=== PATIENT | male | born 1965 | race Caucasian/White ===

== ENCOUNTER 2017-04-15 18:37 | Emergency (ER) | payer MEDICARE, OTHER ==
[2017-04-15] MEDS ORDERED: Sodium Chloride 0.9% 10 ML Syringe FLUSH STA (19:41)
[2017-04-15] MEDS ORDERED: Ondansetron 4 MG/2 ML SDV IVPUSH ONE ×2 (19:43→22:09)
[2017-04-15] MEDS ORDERED: HYDROmorphone 1 MG/ML Syringe IVPUSH ONE ×2 (19:43→20:30)
[2017-04-15 21:53] VITALS: BP 121/91
--- NOTE | 2017-04-15 23:43 | EDM.PDOC ---
ED HPI GENERAL MEDICAL PROBLEM - General Chief Complaint: Back Pain or Injury Stated Complaint: BACK PAIN Time Seen by Provider: 04/15/17 19:06 Source of Information: Reports: Patient History Limitations: Reports: No Limitations - History of Present Illness INITIAL COMMENTS - FREE TEXT/NARRATIVE: History of present illness: [This 51-year-old male presents with severe low back pain. He is chronically disabled as a result of back pain and degenerative joint disease. He is scheduled to see an orthopedic surgeon tomorrow in [place]. He is presenting here in so much pain that he is afraid not to be able to get into the vehicle to make his appointment. it's been several years since he's had any imaging done. The pain has become much worse over the last 3 days. He states that he can't even lay down in bed anymore he is in so much pain. He has some pain radiating to the right groin he has no loss of bowel or bladder function. He's barely able to walk due to pain and not weakness.] Review of systems: As per history of present illness and below otherwise all systems reviewed and negative. Past medical history: As per history of present illness and as reviewed below otherwise noncontributory. Surgical history: As per history of present illness and as reviewed below otherwise noncontributory. Social history: No reported history of drug or alcohol abuse. Family history: As per history of present illness and as reviewed below otherwise noncontributory. Physical exam: HEENT: Atraumatic, normocephalic, pupils reactive, negative for conjunctival pallor or scleral icterus, mucous membranes moist, throat clear, neck supple, nontender, trachea midline. Lungs: Clear to auscultation, breath sounds equal bilaterally, chest nontender. Heart: S1S2, regular, negative for clicks, rubs, or JVD. Abdomen: Soft, nondistended, nontender. Negative for masses or hepatosplenomegaly. Negative for costovertebral tenderness. Pelvis: Stable nontender. Back: He has diffuse tenderness to palpation of the high lumbar area of his spine and lower thoracic area. It is especially acute midline. Genitourinary: Deferred. Rectal: Deferred. Extremities: Atraumatic, negative for cords or calf pain. Neurovascular unremarkable. Neuro: Awake, alert, oriented. Cranial nerves II through XII unremarkable. Cerebellum unremarkable. Motor and sensory unremarkable throughout. Exam nonfocal. Diagnostics: [We elected to do a CT of his thoracic and lumbar spine as he has an appointment tomorrow and it is become acute over the last 3 days. Results aren' t is showing multilevel degenerative joint disease of the lumbar and thoracic spine. These images should be available tomorrow for his appointment. 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 BACK Pain Score (Numeric/FACES): 10 - Related Data Allergies Allergy/AdvReac Type Severity Reaction Status Date / Time erythromycin base Allergy Abdominal Verified 04/15/17 19:27 [Erythromycin Base] Pain meperidine HCl [From Demerol] Allergy Respiratory Verified 04/15/17 19:27 Distress Penicillins Allergy Cannot Verified 04/15/17 19:27 Remember Home Meds: Home Meds Gluc Rios 2KCl/Chondr/Vit C/Galen [Glucosamine-Chondr Complex] 1 tab PO DAILY PRN 03/04/15 [History] Lisinopril [Prinivil] 40 mg PO BID 03/04/15 [History] Metoprolol Tartrate [Lopressor] 25 mg PO BID #180 tablet 03/10/15 [Rx] Rosuvastatin [Crestor] 20 mg PO BEDTIME 04/25/15 [History] Aspirin [Ecotrin] 81 mg PO DAILY 04/15/17 [History] Cyclobenzaprine [Flexeril] 10 mg PO TID 04/15/17 [History] Doxazosin [Cardura] 2 mg PO DAILY 04/15/17 [History] Furosemide 20 mg PO DAILY 04/15/17 [History] Hydrocodone/Acetaminophen [Hydrocodon-Acetaminophen 5-325] 1 tab PO Q4HR PRN [History] Past Medical History Other Gastrointestinal History: colon polyps Musculoskeletal History: Reports: Back Pain, Chronic 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 ED EXAM,LOWER BACK PAIN/INJURY - Physical Exam Exam: See Below Course - Vital Signs Last Recorded V/S: Last Vital Signs Temp 34.3 C L 04/15/17 21:50 Pulse 61 04/15/17 21:50 Resp 16 04/15/17 21:50 BP 121/91 H 04/15/17 21:50 Pulse Ox 96 04/15/17 21:50 - Orders/Labs/Meds Orders: Active Orders 24 hr Category Date Time Status Lumbar Spine wo Cont [CT] Stat Exams 04/15/17 19:44 Taken Thoracic Spine wo Cont [CT] Stat Exams 04/15/17 20:17 Taken Meds: Medications Discontinued Medications Generic Name Dose Route Start Last Admin Trade Name Freq PRN Reason Stop Dose Admin Diazepam 5 mg 04/15/17 19:58 04/15/17 20:06 Valium IVPUSH 04/15/17 19:59 5 mg ONETIME ONE Administration Diazepam 5 mg 04/15/17 20:18 04/15/17 20:29 Valium IVPUSH 04/15/17 20:19 5 mg ONETIME ONE Administration Hydromorphone HCl 1 mg 04/15/17 19:43 04/15/17 19:49 Dilaudid IVPUSH 04/15/17 19:44 1 mg ONETIME ONE Administration Hydromorphone HCl 1 mg 04/15/17 20:30 04/15/17 20:35 Dilaudid IVPUSH 04/15/17 20:31 1 mg ONETIME ONE Administration Ondansetron HCl 4 mg 04/15/17 19:43 04/15/17 19:49 Zofran IVPUSH 04/15/17 19:44 4 mg ONETIME ONE Administration Ondansetron HCl 4 mg 04/15/17 22:09 04/15/17 22:13 Zofran IVPUSH 04/15/17 22:10 4 mg ONETIME ONE Administration Sodium Chloride 10 ml 04/15/17 19:41 04/15/17 19:45 Saline Flush FLUSH 04/15/17 19:42 10 ml NOW STA Administration Departure - Departure Time of Disposition: 23:42 Disposition: Home, Self-Care 01 Condition: fair Clinical Impression: Degenerative joint disease (DJD) of lumbar spine Qualifiers: Spinal osteoarthritis complication: with radiculopathy Qualified Code(s): M47.26 - Other spondylosis with radiculopathy, lumbar region - Discharge Information Forms: ED Department Discharge - My Orders Last 24 Hours: My Active Orders 04/15/17 19:44 Lumbar Spine wo Cont [CT] Stat 04/15/17 20:17 Thoracic Spine wo Cont [CT] Stat - Assessment/Plan Last 24 Hours: My Active Orders 04/15/17 19:44 Lumbar Spine wo Cont [CT] Stat 04/15/17 20:17 Thoracic Spine wo Cont [CT] Stat
== END 2017-04-16 00:05 | disposition home or self-care (01) ==
LOC: JP.ED 18:37
DX: M47.26 Other spondylosis with radiculopathy, lumbar region (principal); Z88.1 Allergy status to other antibiotic agents; Z88.0 Allergy status to penicillin; Z88.8 Allergy status to other drugs, medicaments and biological substances; Z79.899 Other long term (current) drug therapy; Z79.82 Long term (current) use of aspirin; Z87.891 Personal history of nicotine dependence
CPT/HCPCS: 72128; 72131; 96374; 96375; 96376; 99284; J1170; J2405; J3360; J7050

== ENCOUNTER 2017-04-17 20:12 | Inpatient (IN) | payer MEDICARE, OTHER ==
--- NOTE | 2017-04-17 20:49 | EDM.PDOC ---
ED HPI GENERAL MEDICAL PROBLEM - General Chief Complaint: Abdominal Pain Stated Complaint: ABD PAIN,PASSING BLOOD Time Seen by Provider: 04/17/17 20:49 Source of Information: Reports: Patient History Limitations: Reports: No Limitations - History of Present Illness INITIAL COMMENTS - FREE TEXT/NARRATIVE: Pt arrived with a history of rectal bleeding He started bleeding today. He had loose stools during the nite. He has pain in his lower abdoman. He does not have pain in the rectum. Onset: Sudden Duration: Day(s): Location: Reports: Abdomen Associated Symptoms: Reports: Other (diarrhea and now he is passing blood. 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 Lower abdomen Pain Score (Numeric/FACES): 5 - Related Data Allergies Allergy/AdvReac Type Severity Reaction Status Date / Time erythromycin base Allergy Abdominal Verified 04/15/17 19:27 [Erythromycin Base] Pain meperidine HCl [From Demerol] Allergy Respiratory Verified 04/15/17 19:27 Distress Penicillins Allergy Cannot Verified 04/15/17 19:27 Remember Home Meds: Home Meds Gluc Rios 2KCl/Chondr/Vit C/Galen [Glucosamine-Chondr Complex] 1 tab PO DAILY PRN 03/04/15 [History] Lisinopril [Prinivil] 40 mg PO BID 03/04/15 [History] Metoprolol Tartrate [Lopressor] 25 mg PO BID #180 tablet 03/10/15 [Rx] Rosuvastatin [Crestor] 20 mg PO BEDTIME 04/25/15 [History] Aspirin [Ecotrin] 81 mg PO DAILY 04/15/17 [History] Cyclobenzaprine [Flexeril] 10 mg PO TID 04/15/17 [History] Doxazosin [Cardura] 2 mg PO DAILY 04/15/17 [History] Furosemide 20 mg PO DAILY 04/15/17 [History] Hydrocodone/Acetaminophen [Hydrocodon-Acetaminophen 5-325] 1 tab PO Q4HR PRN [History] Past Medical History Other Gastrointestinal History: colon polyps Musculoskeletal History: Reports: Back Pain, Chronic 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 - Past Surgical History Other GI Surgeries/Procedures: hemorrhoidectomy Social & Family History - Tobacco Use Smoking Status *Q: Former Smoker Years of Tobacco use: 15 Used Tobacco, but Quit: Yes Month Tobacco Last Used: 0 Second Hand Smoke Exposure: No - Caffeine Use Caffeine Use: Reports: Coffee - Alcohol Use Days Per Week of Alcohol Use: 2 Number of Drinks Per Day: 12 Total Drinks Per Week: 24 - Recreational Drug Use Recreational Drug Use: No ED ROS GENERAL - Review of Systems Review Of Systems: See Below Constitutional: Reports: No Symptoms HEENT: Reports: No Symptoms Respiratory: Reports: No Symptoms Cardiovascular: Reports: No Symptoms Endocrine: Reports: No Symptoms GI/Abdominal: Reports: Abdominal Pain, Other (Pt has lower abdomanal pain. ) : Reports: No Symptoms Musculoskeletal: Reports: No Symptoms Skin: Reports: No Symptoms ED EXAM, GI/ABD - Physical Exam Exam: See Below Text/Narrative:: pt has severe pain in the lower abdoman. This is in the suprapupic area. Exam Limited By: No Limitations General Appearance: Alert, Anxious, Moderate Distress Eyes: Bilateral: Normal Appearance, EOMI Ears: Normal TMs Nose: Normal Inspection Throat/Mouth: Normal Inspection Head: Atraumatic Neck: Normal Inspection Respiratory/Chest: No Respiratory Distress Cardiovascular: Regular Rate, Rhythm (Male) Exam: Deferred Rectal (Males) Exam: Deferred Back Exam: Other (pt is having severe lower back pain. He had a cat scan which they do not have the results for. ) Extremities: Normal Inspection Course - Vital Signs Last Recorded V/S: Last Vital Signs Temp 36.7 C 04/17/17 21:52 Pulse 59 L 04/17/17 22:57 Resp 14 04/17/17 21:52 BP 165/104 H 04/17/17 22:57 Pulse Ox 97 04/17/17 22:57 - Orders/Labs/Meds Orders: Active Orders 24 hr Category Date Time Status Abdomen Pelvis w Cont [CT] Stat Exams 04/17/17 21:35 Taken Iopamidol [Isovue-300 (61%)] Med 04/17/17 22:11 Active 150 ml IV . DIRECTED PRN Pantoprazole [ProTONIX IV] Med 04/17/17 23:45 Active 80 mg IVPUSH .BOLUS Sodium Chloride 0.9% [Normal Saline] 1,000 ml Med 04/17/17 23:45 Active IV ASDIRECTED Sodium Chloride 0.9% [Normal Saline] 100 ml Med 04/17/17 22:15 Active IV ASDIRECTED Sodium Chloride 0.9% [Saline Flush] Med 04/17/17 21:53 Active 10 ml FLUSH ASDIRECTED PRN Saline Lock Insert [OM.PC] Routine Oth 04/17/17 21:53 Ordered Medication Orders Sodium Chloride (Normal Saline) 100 mls @ 3.5 mls/sec IV ASDIRECTED ARTURO Last Admin: 04/17/17 22:35 Dose: 3.5 mls/sec Sodium Chloride (Normal Saline) 1,000 mls @ 125 mls/hr IV ASDIRECTED ARTURO Iopamidol (Isovue-300 (61%)) 150 ml IV . DIRECTED PRN PRN Reason: RADIOLOGY EXAM Stop: 04/18/17 22:12 Last Admin: 04/17/17 22:34 Dose: 150 ml Pantoprazole Sodium (Protonix Iv) 80 mg IVPUSH .BOLUS ARTURO Sodium Chloride (Saline Flush) 10 ml FLUSH ASDIRECTED PRN PRN Reason: Keep Vein Open Last Admin: 04/17/17 21:55 Dose: 10 ml Labs: Laboratory Tests 04/17/17 04/17/17 04/17/17 Range/Units 20:48 20:48 20:48 WBC 12.0 H (4.5-11.0) K/uL RBC 5.96 H (4.30-5.90) M/uL Hgb 16.4 H D (12.0-15.0) g/dL Hct 48.8 (40.0-54.0) % MCV 82 (80-98) fL MCH 28 (27-31) pg MCHC 34 (32-36) % Plt Count 205 (150-400) K/uL Neut % (Auto) 68 H (36-66) % Lymph % (Auto) 21 L (24-44) % [place] % (Auto) 9 H (2-6) % Eos % (Auto) 2 (2-4) % Baso % (Auto) 0 (0-1) % Sodium 139 L (140-148) mmol/L Potassium 3.4 L (3.6-5.2) mmol/L Chloride 102 (100-108) mmol/L Carbon Dioxide 28 (21-32) mmol/L Anion Gap 12.4 (5.0-14.0) mmol/L BUN 10 (7-18) mg/dL Creatinine 1.0 (0.8-1.3) mg/dL Est Cr Clr Drug Dosing 84.55 mL/min Estimated GFR (MDRD) > 60 (>60) Glucose 123 H (74-106) mg/dL Calcium 8.7 (8.5-10.1) mg/dL Total Bilirubin 0.5 (0.2-1.0) mg/dL AST 25 (15-37) U/L ALT 47 (12-78) U/L Alkaline Phosphatase 108 (46-116) U/L C-Reactive Protein 0.50 H (0.0-0.3) mg/dL Total Protein 8.0 (6.4-8.2) g/dL Albumin 3.8 (3.4-5.0) g/dL Globulin 4.2 H (2.3-3.5) g/dL Albumin/Globulin Ratio 0.9 L (1.2-2.2) Urine Color Urine Appearance Urine pH (4.5-8.0) Ur Specific [place] (1.008-1.030) Urine Protein (NEGATIVE) mg/dL Urine Glucose (UA) (NEGATIVE) mg/dL Urine Ketones (NEGATIVE) mg/dL Urine Occult Blood (NEGATIVE) Urine Nitrite (NEGAITVE) Urine Bilirubin (NEGATIVE) Urine Urobilinogen (NORMAL) mg/dL Ur Leukocyte Esterase (NEGATIVE) Urine RBC (0-5) Urine WBC (0-5) Ur Epithelial Cells Amorphous Sediment Urine Bacteria Urine Mucus Urine Other 04/17/17 Range/Units 21:15 WBC (4.5-11.0) K/uL RBC (4.30-5.90) M/uL Hgb (12.0-15.0) g/dL Hct (40.0-54.0) % MCV (80-98) fL MCH (27-31) pg MCHC (32-36) % Plt Count (150-400) K/uL Neut % (Auto) (36-66) % Lymph % (Auto) (24-44) % [place] % (Auto) (2-6) % Eos % (Auto) (2-4) % Baso % (Auto) (0-1) % Sodium (140-148) mmol/L Potassium (3.6-5.2) mmol/L Chloride (100-108) mmol/L Carbon Dioxide (21-32) mmol/L Anion Gap (5.0-14.0) mmol/L BUN (7-18) mg/dL Creatinine (0.8-1.3) mg/dL Est Cr Clr Drug Dosing mL/min Estimated GFR (MDRD) (>60) Glucose (74-106) mg/dL Calcium (8.5-10.1) mg/dL Total Bilirubin (0.2-1.0) mg/dL AST (15-37) U/L ALT (12-78) U/L Alkaline Phosphatase (46-116) U/L C-Reactive Protein (0.0-0.3) mg/dL Total Protein (6.4-8.2) g/dL Albumin (3.4-5.0) g/dL Globulin (2.3-3.5) g/dL Albumin/Globulin Ratio (1.2-2.2) Urine Color Yellow Urine Appearance Clear Urine pH 6.0 (4.5-8.0) Ur Specific [place] 1.020 (1.008-1.030) Urine Protein Trace (NEGATIVE) mg/dL Urine Glucose (UA) Normal (NEGATIVE) mg/dL Urine Ketones Negative (NEGATIVE) mg/dL Urine Occult Blood Negative (NEGATIVE) Urine Nitrite Negative (NEGAITVE) Urine Bilirubin Negative (NEGATIVE) Urine Urobilinogen Normal (NORMAL) mg/dL Ur Leukocyte Esterase Negative (NEGATIVE) Urine RBC 0-5 (0-5) Urine WBC 0-5 (0-5) Ur Epithelial Cells Few Amorphous Sediment Few Urine Bacteria Rare Urine Mucus Few Urine Other See note Meds: Medications Generic Name Dose Route Start Last Admin Trade Name Titiq PRN Reason Stop Dose Admin Sodium Chloride 100 mls @ 3.5 mls/sec 04/17/17 22:15 04/17/17 22:35 Normal Saline IV 3.5 mls/sec ASDIRECTED ARTURO Administration Sodium Chloride 1,000 mls @ 125 mls/hr 04/17/17 23:45 Normal Saline IV ASDIRECTED ARTURO Iopamidol 150 ml 04/17/17 22:11 04/17/17 22:34 Isovue-300 (61%) IV 04/18/17 22:12 150 ml . DIRECTED PRN Administration RADIOLOGY EXAM Pantoprazole Sodium 80 mg 04/17/17 23:45 Protonix Iv IVPUSH .BOLUS ARTURO Sodium Chloride 10 ml 04/17/17 21:53 04/17/17 21:55 Saline Flush FLUSH 10 ml ASDIRECTED PRN Administration Keep Vein Open Discontinued Medications Generic Name Dose Route Start Last Admin Trade Name Van PRN Reason Stop Dose Admin Sodium Chloride 10 ml 04/17/17 22:11 04/17/17 22:35 Saline Flush FLUSH 04/17/17 23:00 10 ml ASDIRECTED PRN Administration Keep Vein Open - Re-Assessments/Exams Free Text/Narrative Re-Assessment/Exam: 04/17/17 23:55 cat scan showed probale colitis Pt is having low grade active bleeding. Departure - Departure Time of Disposition: 23:56 Disposition: Admitted As Inpatient 66 Condition: fair Clinical Impression: Colitis, Lumbar back pain, Rectal bleed - Discharge Information Forms: ED Department Discharge Care Plan Goals: admit to [facility] - My Orders Last 24 Hours: My Active Orders 04/17/17 21:35 Abdomen Pelvis w Cont [CT] Stat 04/17/17 21:53 Sodium Chloride 0.9% [Saline Flush] 10 ml FLUSH ASDIRECTED PRN Saline Lock Insert [OM.PC] Routine 04/17/17 22:11 Iopamidol [Isovue-300 (61%)] 150 ml IV . DIRECTED PRN 04/17/17 22:15 Sodium Chloride 0.9% [Normal Saline] 100 ml IV ASDIRECTED - Assessment/Plan Last 24 Hours: My Active Orders 04/17/17 21:35 Abdomen Pelvis w Cont [CT] Stat 04/17/17 21:53 Sodium Chloride 0.9% [Saline Flush] 10 ml FLUSH ASDIRECTED PRN Saline Lock Insert [OM.PC] Routine 04/17/17 22:11 Iopamidol [Isovue-300 (61%)] 150 ml IV . DIRECTED PRN 04/17/17 22:15 Sodium Chloride 0.9% [Normal Saline] 100 ml IV ASDIRECTED
[2017-04-17] MEDS: Sodium Chloride 0.9% 10 ML Syringe FLUSH PRN (21:55)
[2017-04-17] MEDS ORDERED: Iopamidol 612 MG/ML 150 ML Bottle IV PRN (22:11)
[2017-04-17] MEDS ORDERED: Sodium Chloride 0.9% 10 ML Syringe FLUSH PRN (22:11)
[2017-04-17] MEDS ORDERED: Sodium Chloride 0.9% 100 ML IV SCH (22:15)
[2017-04-17] MEDS ORDERED: Pantoprazole 40 MG Vial IVPUSH SCH (23:45)
[2017-04-18] MEDS ORDERED: Ondansetron 4 MG/2 ML SDV IVPUSH ONE (00:09)
[2017-04-18] MEDS ORDERED: HYDROmorphone 1 MG/ML Syringe IVPUSH ONE (00:09)
[2017-04-18] MEDS: Sodium Chloride 0.9% 1,000 ML IV SCH ×2 (00:10→09:48)
[2017-04-18] MEDS: Sodium Chloride 0.9% 10 ML Syringe FLUSH PRN (00:30)
--- NOTE | 2017-04-18 00:54 | PCM.HP ---
H&P History of Present Illness - General Date of Service: 04/17/17 Admit Problem/Dx: Admission Diagnosis/Problem Admission Diagnosis/Problem Colitis Source of Information: Patient, Family () History Limitations: Reports: No Limitations - History of Present Illness Initial Comments - Free Text/Narative: Rectal bleeding with abdominal pain; Pt arrived with a history of rectal bleeding He started bleeding today. He had 8 to 10 bloody loose stools today, he had one in ER which was noted to be bright red with clots. He has pain in his lower abdomen for the past two days. He does not have pain in the rectum. Onset: Sudden CT Abdomen Pelvis; moderate wall thickening of distal transverse colon and splenic flexure. This may be due to infectious colitis or inflammatory bowel disease. Ischemic colitis can also be considered in the appropriate clinical context. the appendix is normal in appearance and size. Consult with Dr. Nazario, Surgeon, He will do colonscopy in am. Bowel Prep to start on admission to Hospital. Onset of Symptoms: Reports: Today Duration of Symptoms: Reports: Day(s): (two), Constant, Getting Worse Location: Reports: Abdomen, Other (rectal bleeding and abdomen pain.) Quality: Reports: Ache, Burning, Sharp Severity: Severe Improves with: Reports: None Worsens with: Reports: Movement Context: Reports: Other Associated Symptoms: Reports: Fever/Chills (for two days), Shortness of Breath ( with activities due to back pain) Lower abdomen Pain Score (Numeric/FACES): 5 - Related Data Allergies/Adverse Reactions: Allergies Allergy/AdvReac Type Severity Reaction Status Date / Time erythromycin base Allergy Abdominal Verified 04/15/17 19:27 [Erythromycin Base] Pain meperidine HCl [From Demerol] Allergy Respiratory Verified 04/15/17 19:27 Distress Penicillins Allergy Cannot Verified 04/15/17 19:27 Remember Home Medications: Home Meds Gluc Rios 2KCl/Chondr/Vit C/[place] [Glucosamine-Chondr Complex] 1 tab PO DAILY PRN 03/04/15 [History] Lisinopril [Prinivil] 40 mg PO BID 03/04/15 [History] Metoprolol Tartrate [Lopressor] 25 mg PO BID #180 tablet 03/10/15 [Rx] Rosuvastatin [Crestor] 20 mg PO BEDTIME 04/25/15 [History] Aspirin [Ecotrin] 81 mg PO DAILY 04/15/17 [History] Cyclobenzaprine [Flexeril] 10 mg PO TID 04/15/17 [History] Doxazosin [Cardura] 2 mg PO DAILY 04/15/17 [History] Furosemide 20 mg PO DAILY 04/15/17 [History] Hydrocodone/Acetaminophen [Hydrocodon-Acetaminophen 5-325] 1 tab PO Q4HR PRN [History] Past Medical History HEENT History: Reports: Hard of Hearing Cardiovascular History: Reports: High Cholesterol, Hypertension Gastrointestinal History: Reports: Chronic Diarrhea, GERD, Other (See Below) Other Gastrointestinal History: colon polyps Musculoskeletal History: Reports: Back Pain, Chronic 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 Neurological History: Reports: Head Trauma, Seizure Psychiatric History: Reports: Anxiety - Infectious Disease History Infectious Disease History: Reports: Chicken Pox - Past Surgical History Other GI Surgeries/Procedures: hemorrhoidectomy Social & Family History - Family History Cardiac: Reports: [facility] Oncologic: Reports: Colon - Tobacco Use Smoking Status *Q: Former Smoker Years of Tobacco use: 15 Used Tobacco, but Quit: Yes Month Tobacco Last Used: 0 Second Hand Smoke Exposure: No - Caffeine Use Caffeine Use: Reports: Coffee - Alcohol Use Days Per Week of Alcohol Use: 2 Number of Drinks Per Day: 12 Total Drinks Per Week: 24 - Recreational Drug Use Recreational Drug Use: No - Living Situation & Occupation Living situation: Reports: (lives with , 5 miles from [place], [place].) H&P Review of Systems - Review of Systems: Review Of Systems: See Below General: Reports: Fever, Chills, Malaise, Decreased Appetite HEENT: Reports: No Symptoms Pulmonary: Reports: Shortness of Breath Cardiovascular: Reports: Blood Pressure Problem (pre-existing HTN) Gastrointestinal: Reports: Abdominal Pain, Bloody Stool, Diarrhea, Decreased Appetite Genitourinary: Reports: No Symptoms Musculoskeletal: Reports: Back Pain (acute and chronic) Skin: Reports: No Symptoms Psychiatric: Reports: No Symptoms Neurological: Reports: No Symptoms Hematologic/Lymphatic: Reports: No Symptoms Immunologic: Reports: No Symptoms Exam - Exam Exam: See Below - Vital Signs Vital Signs: Last Vital Signs Temp 35.9 C 04/18/17 00:31 Pulse 69 04/18/17 00:31 Resp 14 04/18/17 00:31 BP 175/107 H 04/18/17 00:31 Pulse Ox 94 L 04/18/17 00:31 Weight: 134.4 kg - Exam General: Alert, Oriented, Cooperative, Mild Distress HEENT: PERRLA, Conjunctiva Clear, EACs Clear, EOMI, Hearing Intact, Mucosa Moist & [place], Nares Patent, Normal Nasal Septum, Posterior Pharynx Clear, Pupils Equal, Pupils Reactive, TMs Clear, Other (large pitted tonsils. ) Neck: Supple, Trachea Midline, 2 Lungs: Clear to Auscultation, Normal Respiratory Effort Cardiovascular: Regular Rate, Regular Rhythm, Normal S1, Normal S2 Abdomen: Soft, Distention (large, obese), Tenderness (generalized), Hypoactive Bowel Sounds (Male) Exam: Deferred Rectal (Males) Exam: Deferred Back Exam: Normal Inspection, Full Range of Motion Extremities: Normal Inspection Skin: Warm, Dry, Intact Neurological: Cranial Nerves Intact, Reflexes Equal Bilateral Neuro Extensive - Mental Status: Alert, Oriented x3, Normal Mood/Affect, Normal Cognition Neuro Extensive - Motor, Sensory, Reflexes: CN II-XII Intact, Normal Gait, Normal Reflexes Psychiatric: Alert, Anxious (related to hospital admission and pending surgery) - Patient Data Lab Results last 24 hrs: Laboratory Results - last 24 hr 04/17/17 04/17/17 04/17/17 Range/Units 20:48 20:48 20:48 WBC 12.0 H (4.5-11.0) K/uL RBC 5.96 H (4.30-5.90) M/uL Hgb 16.4 H D (12.0-15.0) g/dL Hct 48.8 (40.0-54.0) % MCV 82 (80-98) fL MCH 28 (27-31) pg MCHC 34 (32-36) % Plt Count 205 (150-400) K/uL Neut % (Auto) 68 H (36-66) % Lymph % (Auto) 21 L (24-44) % [place] % (Auto) 9 H (2-6) % Eos % (Auto) 2 (2-4) % Baso % (Auto) 0 (0-1) % Sodium 139 L (140-148) mmol/L Potassium 3.4 L (3.6-5.2) mmol/L Chloride 102 (100-108) mmol/L Carbon Dioxide 28 (21-32) mmol/L Anion Gap 12.4 (5.0-14.0) mmol/L BUN 10 (7-18) mg/dL Creatinine 1.0 (0.8-1.3) mg/dL Est Cr Clr Drug Dosing 84.55 mL/min Estimated GFR (MDRD) > 60 (>60) Glucose 123 H (74-106) mg/dL Calcium 8.7 (8.5-10.1) mg/dL Total Bilirubin 0.5 (0.2-1.0) mg/dL AST 25 (15-37) U/L ALT 47 (12-78) U/L Alkaline Phosphatase 108 (46-116) U/L C-Reactive Protein 0.50 H (0.0-0.3) mg/dL Total Protein 8.0 (6.4-8.2) g/dL Albumin 3.8 (3.4-5.0) g/dL Globulin 4.2 H (2.3-3.5) g/dL Albumin/Globulin Ratio 0.9 L (1.2-2.2) Urine Color Urine Appearance Urine pH (4.5-8.0) Ur Specific [place] (1.008-1.030) Urine Protein (NEGATIVE) mg/dL Urine Glucose (UA) (NEGATIVE) mg/dL Urine Ketones (NEGATIVE) mg/dL Urine Occult Blood (NEGATIVE) Urine Nitrite (NEGAITVE) Urine Bilirubin (NEGATIVE) Urine Urobilinogen (NORMAL) mg/dL Ur Leukocyte Esterase (NEGATIVE) Urine RBC (0-5) Urine WBC (0-5) Ur Epithelial Cells Amorphous Sediment Urine Bacteria Urine Mucus Urine Other 04/17/17 Range/Units 21:15 WBC (4.5-11.0) K/uL RBC (4.30-5.90) M/uL Hgb (12.0-15.0) g/dL Hct (40.0-54.0) % MCV (80-98) fL MCH (27-31) pg MCHC (32-36) % Plt Count (150-400) K/uL Neut % (Auto) (36-66) % Lymph % (Auto) (24-44) % [place] % (Auto) (2-6) % Eos % (Auto) (2-4) % Baso % (Auto) (0-1) % Sodium (140-148) mmol/L Potassium (3.6-5.2) mmol/L Chloride (100-108) mmol/L Carbon Dioxide (21-32) mmol/L Anion Gap (5.0-14.0) mmol/L BUN (7-18) mg/dL Creatinine (0.8-1.3) mg/dL Est Cr Clr Drug Dosing mL/min Estimated GFR (MDRD) (>60) Glucose (74-106) mg/dL Calcium (8.5-10.1) mg/dL Total Bilirubin (0.2-1.0) mg/dL AST (15-37) U/L ALT (12-78) U/L Alkaline Phosphatase (46-116) U/L C-Reactive Protein (0.0-0.3) mg/dL Total Protein (6.4-8.2) g/dL Albumin (3.4-5.0) g/dL Globulin (2.3-3.5) g/dL Albumin/Globulin Ratio (1.2-2.2) Urine Color Yellow Urine Appearance Clear Urine pH 6.0 (4.5-8.0) Ur Specific [place] 1.020 (1.008-1.030) Urine Protein Trace (NEGATIVE) mg/dL Urine Glucose (UA) Normal (NEGATIVE) mg/dL Urine Ketones Negative (NEGATIVE) mg/dL Urine Occult Blood Negative (NEGATIVE) Urine Nitrite Negative (NEGAITVE) Urine Bilirubin Negative (NEGATIVE) Urine Urobilinogen Normal (NORMAL) mg/dL Ur Leukocyte Esterase Negative (NEGATIVE) Urine RBC 0-5 (0-5) Urine WBC 0-5 (0-5) Ur Epithelial Cells Few Amorphous Sediment Few Urine Bacteria Rare Urine Mucus Few Urine Other See note Result Diagrams: 04/17/17 20:48 04/17/17 20:48 *Q Meaningful Use (ADM) - VTE *Q VTE Criteria *Q: - Stroke *Q Stroke Criteria *Q: - AMI *Q AMI Criteria *Q: - Problem List (1) Colitis SNOMED Code(s): 73076524 ICD Code: K52.9 - NONINFECTIVE GASTROENTERITIS AND COLITIS, UNSPECIFIED Status: Acute Priority: High Current Visit: Yes (2) Rectal bleed SNOMED Code(s): 99652477 ICD Code: K62.5 - HEMORRHAGE OF ANUS AND RECTUM Status: Acute Priority: High Current Visit: Yes (3) Degenerative joint disease (DJD) of lumbar spine Status: Acute Priority: Medium Current Visit: Yes Qualifiers: Spinal osteoarthritis complication: with radiculopathy Qualified Code(s): M47.26 - Other spondylosis with radiculopathy, lumbar region (4) Hypertension SNOMED Code(s): 33978547 ICD Code: I10 - ESSENTIAL (PRIMARY) HYPERTENSION Status: Acute Priority: High Current Visit: Yes Qualifiers: Hypertension type: essential hypertension Qualified Code(s): I10 - Essential (primary) hypertension Problem List Initiated/Reviewed/Updated: Yes Orders Last 24hrs: Active Orders 24 hr Category Date Time Status Patient Status Manage Transfer [TRANSFER] Routine ADT 04/18/17 00:23 Active Abdomen Pelvis w Cont [CT] Stat Exams 04/17/17 21:35 Taken Iopamidol [Isovue-300 (61%)] Med 04/17/17 22:11 Active 150 ml IV . DIRECTED PRN Pantoprazole [ProTONIX IV] Med 04/17/17 23:45 Active 80 mg IVPUSH .BOLUS Sodium Chloride 0.9% [Normal Saline] 1,000 ml Med 04/17/17 23:45 Active IV ASDIRECTED Sodium Chloride 0.9% [Normal Saline] 100 ml Med 04/17/17 22:15 Active IV ASDIRECTED Sodium Chloride 0.9% [Saline Flush] Med 04/17/17 21:53 Active 10 ml FLUSH ASDIRECTED PRN Saline Lock Insert [OM.PC] Routine Oth 04/17/17 21:53 Ordered Resuscitation Status Routine Resus Stat 04/18/17 00:24 Ordered Medication Orders Sodium Chloride (Normal Saline) 100 mls @ 3.5 mls/sec IV ASDIRECTED ARTURO Last Admin: 04/17/17 22:35 Dose: 3.5 mls/sec Sodium Chloride (Normal Saline) 1,000 mls @ 125 mls/hr IV ASDIRECTED ARTURO Last Admin: 04/18/17 00:10 Dose: 125 mls/hr Iopamidol (Isovue-300 (61%)) 150 ml IV . DIRECTED PRN PRN Reason: RADIOLOGY EXAM Stop: 04/18/17 22:12 Last Admin: 04/17/17 22:34 Dose: 150 ml Pantoprazole Sodium (Protonix Iv) 80 mg IVPUSH .BOLUS ARTURO Last Admin: 04/18/17 00:13 Dose: 80 mg Sodium Chloride (Saline Flush) 10 ml FLUSH ASDIRECTED PRN PRN Reason: Keep Vein Open Last Admin: 04/18/17 00:30 Dose: 10 ml Admin: 04/17/17 21:55 Dose: 10 ml Assessment/Plan Comment:: Assessment/Plan Comment:: Rectal bleeding with abdominal pain; Pt arrived with a history of rectal bleeding He started bleeding today. He had 8 to 10 bloody loose stools today, he had one in ER which was noted to be bright red with clots. He has pain in his lower abdomen for the past two days. He does not have pain in the rectum. Onset: Sudden CT Abdomen Pelvis; moderate wall thickening of distal transverse colon and splenic flexure. This may be due to infectious colitis or inflammatory bowel disease. Ischemic colitis can also be considered in the appropriate clinical context. the appendix is normal in appearance and size. Consult with Dr. Nazario, Surgeon, He will do colonscopy in am. Bowel Prep to start on admission to Hospital. Colitits, abdominal pain and rectal bleeding -N.p.o. status -IV fluids, Normal Saline at 125ml per hour -start colon prep tonight -IV flagyl 500mg every 8 hours -IV Cipro 400mg every 12 hours -IV Protonix 80mg in ER, then IV 40mg every 12 hours -IV Dilaudid [employer] -IV Zofran 4mg every 8 hours prn nausea -Anticipate surgical intervention in the morning with Dr. Nazario Back pain -Dilaudid [employer] HTN, heart disease -continue home medication; Lisinopril 40mg bid, Crestor 20mg at hs, Lasix 20mg daily, Cardura 2mg daily, Lopressor 25mg po bid -given pm dose on admission to hospital Maintenance issues - - DVT prophylaxis - SCD, hold anti-coag due to active lower GI bleed. - GI prophylaxis - PPI - Nutrition - n.p.o. - Sosa catheter - not indicated at this time CODE STATUS - FULL Admission justification - This patient will be admitted for inpatient services and is medically appropriate meeting medical necessity for inpatient admission as outlined in my documentation. I reasonably expect the patient will require inpatient services that span a period time over 2 midnights. I reasonably expect this patient to be discharged or transferred within 96 hours after admission to the Critical [facility]. Disposition - anticipate discharge to home Primary care physician - Carola Sampson nurse practitioner
[2017-04-18] MEDS ORDERED: LORazepam 2 MG/ML MDV IV PRN (01:35)
[2017-04-18] MEDS ORDERED: metroNIDAZOLE/Normal Saline 500 MG in Premix Bag 1 BAG IV SCH (01:35)
[2017-04-18] MEDS ORDERED: Ondansetron 4 MG/2 ML SDV IVPUSH PRN (01:35)
[2017-04-18] MEDS ORDERED: Bisacodyl 5 MG Tab PO ONE ×2 (01:35→08:30)
[2017-04-18] MEDS ORDERED: Albuterol 0.083% 2.5 MG/3 ML Neb Soln NEB PRN (01:35)
[2017-04-18] MEDS ORDERED: Naloxone 0.4 MG/ML SDV IVPUSH PRN (01:35)
[2017-04-18] MEDS ORDERED: Ciprofloxacin in D5W 400 MG in Premix Bag 1 BAG IV SCH ×4 (01:35→16:00)
[2017-04-18] MEDS ORDERED: HYDROmorphone/Normal Saline 15 MG/30 ML PCA IV PRN (01:35)
[2017-04-18] MEDS ORDERED: Ondansetron 4 MG/2 ML SDV IV PRN (01:35)
[2017-04-18] MEDS ORDERED: Polyethylene Glycol 3350 Powder 238 GM Bot PO ONE (01:35)
[2017-04-18] MEDS: Metoprolol Tartrate 25 MG Tab PO SCH ×3 (01:54→20:41)
[2017-04-18] MEDS ORDERED: Lisinopril 10 MG Tab ONE (02:15)
[2017-04-18] MEDS: Lisinopril 20 MG Tab PO SCH ×3 (02:19→20:41)
[2017-04-18] MEDS ORDERED: Pantoprazole 40 MG Vial IV SCH (09:10)
[2017-04-18] MEDS: Pantoprazole 40 MG Vial IV SCH ×2 (09:21→20:43)
[2017-04-18] MEDS: Doxazosin 4 MG Tab PO SCH (09:22)
[2017-04-18] MEDS: Furosemide 20 MG Tab PO SCH (09:24)
[2017-04-18] MEDS: metroNIDAZOLE/Normal Saline 500 MG in Premix Bag 1 BAG IV SCH ×2 (09:26→17:14)
[2017-04-18] MEDS: Potassium Chloride 20 MEQ, Lidocaine 1% 2 ML in Sodium Chloride 0.9% 100 ML IV SCH ×2 (09:46→11:39)
--- NOTE | 2017-04-18 10:26 | PCM.PN ---
- General Info Date of Service: 04/18/17 Functional Status: Reports: pain controlled, urinating - Review of Systems General: Denies: Fever, Weakness, Chills Pulmonary: Reports: no symptoms Cardiovascular: Reports: No Symptoms Gastrointestinal: Reports: Abdominal pain. Denies: Diarrhea, Difficulty swallowing, Hematochezia, Melena, Nausea, Vomiting Musculoskeletal: Reports: back pain Systems Review Comment:: This patient is a 51-year-old gentleman who was admitted through the emergency department last night, with left-sided abdominal pain and hematochezia. Symptoms started approximately 24 hours prior to admission with intermittent cramping pain especially in the left lower, current. Through the day yesterday had frequent bloody stools. On this evaluation in the emergency department CT scan showed evidence of colitis in the left colon. Hemoglobin was good and greater than 16, has remained stable since admission with no further bloody stools. Vital signs have been stable and he has remained afebrile. - Patient Data Vitals - most recent: Last Vital Signs Temp 97.3 F 04/18/17 07:05 Pulse 68 04/18/17 09:24 Resp 16 04/18/17 07:05 BP 149/104 H 04/18/17 09:46 Pulse Ox 95 04/18/17 07:05 Weight - most recent: 303 lb I&O - last 24 hours: Intake & Output 04/17/17 04/18/17 04/18/17 22:59 06:59 14:59 Intake Total 2514 Balance 2514 Lab Results last 24 hrs: Laboratory Results - last 24 hr 04/18/17 04/18/17 Range/Units 04:00 04:00 WBC 12.1 H (4.5-11.0) K/uL RBC 5.76 (4.30-5.90) M/uL Hgb 16.2 H (12.0-15.0) g/dL Hct 47.3 (40.0-54.0) % MCV 82 (80-98) fL MCH 28 (27-31) pg MCHC 34 (32-36) % Plt Count 197 (150-400) K/uL Neut % (Auto) 66 (36-66) % Lymph % (Auto) 24 (24-44) % [place] % (Auto) 9 H (2-6) % Eos % (Auto) 1 L (2-4) % Baso % (Auto) 0 (0-1) % Sodium 141 (140-148) mmol/L Potassium 3.1 L (3.6-5.2) mmol/L Chloride 103 (100-108) mmol/L Carbon Dioxide 25 (21-32) mmol/L Anion Gap 16.1 H (5.0-14.0) mmol/L BUN 9 (7-18) mg/dL Creatinine 1.0 (0.8-1.3) mg/dL Est Cr Clr Drug Dosing 84.55 mL/min Estimated GFR (MDRD) > 60 (>60) Glucose 137 H (74-106) mg/dL Calcium 8.3 L (8.5-10.1) mg/dL Med Orders - Current: Current Medications Albuterol (Proventil Neb Soln) 2.5 mg NEB Q4H PRN PRN Reason: Shortness Of Breath/wheezing Doxazosin Mesylate (Cardura) 2 mg PO DAILY [facility] Last Admin: 04/18/17 09:22 Dose: 2 mg Furosemide (Lasix) 20 mg PO DAILY [facility] Last Admin: 04/18/17 09:24 Dose: 20 mg Hydromorphone HCl (Dilaudid [employer] 15 Mg In Ns 30 Ml) 0 mg IV ASDIRECTED PRN; Protocol PRN Reason: Pain Last Admin: 04/18/17 02:20 Dose: 15 mg Sodium Chloride (Normal Saline) 1,000 mls @ 125 mls/hr IV ASDIRECTED [facility] Last Admin: 04/18/17 09:48 Dose: 125 mls/hr Ciprofloxacin/Dextrose 400 mg/ (Premix) 200 mls @ 200 mls/hr IV Q12H [facility] Metronidazole 500 mg/ Premix 100 mls @ 100 mls/hr IV Q8H [facility] Last Admin: 04/18/17 09:26 Dose: 100 mls/hr Potassium Chloride 20 meq/Lidocaine HCl 2 ml/ Sodium Chloride 112 mls @ 56 mls/ hr IV Q2H [facility] Stop: 04/18/17 13:59 Last Admin: 04/18/17 09:46 Dose: 56 mls/hr Lisinopril (Prinivil) 40 mg PO BID [facility] Last Admin: 04/18/17 09:46 Dose: 40 mg Lorazepam (Ativan) 1 mg IV Q6H PRN PRN Reason: Nausea/Vomiting Metoprolol Tartrate (Lopressor) 25 mg PO BID [facility] Last Admin: 04/18/17 09:24 Dose: 25 mg Naloxone HCl (Narcan) 0.4 mg IVPUSH Q2M PRN PRN Reason: Respiratory Distress Ondansetron HCl (Zofran) 4 mg IV Q4H PRN PRN Reason: Nausea/Vomiting Ondansetron HCl (Zofran) 4 mg IVPUSH Q4H PRN PRN Reason: Nausea/Vomiting Pantoprazole Sodium (Protonix Iv) 40 mg IV Q12H [facility] Last Admin: 04/18/17 09:21 Dose: 40 mg Potassium Chloride (Klor-Con M20) 40 meq PO ONETIME ONE Stop: 04/18/17 10:31 Rosuvastatin Calcium (Crestor) 20 mg PO BEDTIME [facility] Discontinued Medications Bisacodyl (Dulcolax) 5 mg PO ONETIME ONE Stop: 04/18/17 01:36 Last Admin: 04/18/17 01:54 Dose: 5 mg Bisacodyl (Dulcolax) 10 mg PO ONETIME ONE Stop: 04/18/17 08:31 Last Admin: 04/18/17 07:54 Dose: 10 mg Hydromorphone HCl (Dilaudid) 1 mg IVPUSH ONETIME ONE Stop: 04/18/17 00:10 Last Admin: 04/18/17 00:24 Dose: 1 mg Sodium Chloride (Normal Saline) 100 mls @ 3.5 mls/sec IV ASDIRECTED [facility] Last Admin: 04/17/17 22:35 Dose: 3.5 mls/sec Ciprofloxacin/Dextrose 400 mg/ (Premix) 200 mls @ 200 mls/hr IV Q12H [facility] Last Admin: 04/18/17 02:03 Dose: 200 mls/hr Metronidazole 500 mg/ Premix 100 mls @ 100 mls/hr IV Q8H [facility] Last Admin: 04/18/17 03:13 Dose: 100 mls/hr Ciprofloxacin/Dextrose 400 mg/ (Premix) 200 mls @ 200 mls/hr IV Q12H [facility] Iopamidol (Isovue-300 (61%)) 150 ml IV . DIRECTED PRN PRN Reason: RADIOLOGY EXAM Stop: 04/18/17 22:12 Last Admin: 04/17/17 22:34 Dose: 150 ml Lisinopril (Prinivil) Confirm Administered Dose 40 mg .ROUTE .STK-MED ONE Stop: 04/18/17 02:16 Last Admin: 04/18/17 02:18 Dose: Not Given Ondansetron HCl (Zofran) 4 mg IVPUSH ONETIME ONE Stop: 04/18/17 00:10 Last Admin: 04/18/17 00:21 Dose: 4 mg Pantoprazole Sodium (Protonix Iv) 80 mg IVPUSH .BOLUS ARTURO Last Admin: 04/18/17 00:13 Dose: 80 mg Pantoprazole Sodium (Protonix Iv) 40 mg IV Q12H [facility] Polyethylene Glycol (Miralax) 238 gm PO ONETIME ONE Stop: 04/18/17 01:36 Last Admin: 04/18/17 01:54 Dose: 238 gm Sodium Chloride (Saline Flush) 10 ml FLUSH ASDIRECTED PRN PRN Reason: Keep Vein Open Last Admin: 04/18/17 00:30 Dose: 10 ml Sodium Chloride (Saline Flush) 10 ml FLUSH ASDIRECTED PRN PRN Reason: Keep Vein Open Stop: 04/17/17 23:00 Last Admin: 04/17/17 22:35 Dose: 10 ml - Exam Quality Assessment: DVT prophylaxis General: alert, oriented, cooperative, mild distress Lungs: Clear to auscultation, Normal respiratory effort Cardiovascular: Regular Rate, Regular Rhythm, No Murmurs Abdomen: bowel sounds present, soft, no distension, tenderness. No: rigidity, rebound, guarding Extremities: no edema Skin: warm, dry, intact - Problem List Review Problem List Initiated/Reviewed/Updated: Yes - My Orders Last 24 Hours: My Active Orders 04/18/17 10:00 Potassium Chloride 20 meq Lidocaine 1% [Xylocaine 1%] 2 ml Sodium Chloride 0.9 % [Normal Saline] 100 ml IV Q2H 04/18/17 10:30 Potassium Chloride [Klor-Con M20] 40 meq PO ONETIME ONE 04/19/17 05:00 BASIC METABOLIC PANEL,BMP [CHEM] Timed CBC WITH AUTO DIFF [HEME] Timed - Plan Plan:: ASSESSMENT AND PLAN ISCHEMIC COLITIS-likely cause of abdominal pain and hematochezia -N.p.o. status -IV fluids, Normal Saline at 125ml per hour -colonoscopy today with Dr. Nazario -IV flagyl 500mg every 8 hours -IV Cipro 400mg every 12 hours -IV Protonix 80mg in ER, then IV 40mg every 12 hours -IV Dilaudid [employer] -IV Zofran 4mg every 8 hours prn nausea CHRONIC LOW BACK PAIN -Dilaudid [employer] HTN, heart disease -continue home medication; Lisinopril 40mg bid, Crestor 20mg at hs, Lasix 20mg daily, Cardura 2mg daily, Lopressor 25mg po bid MAINTENANCE ISSUES - DVT prophylaxis - SCD, hold anti-coag due to active lower GI bleed. - GI prophylaxis - PPI - Nutrition - n.p.o. - Sosa catheter - not indicated at this time CODE STATUS - FULL Admission justification - This patient will be admitted for inpatient services and is medically appropriate meeting medical necessity for inpatient admission as outlined in my documentation. I reasonably expect the patient will require inpatient services that span a period time over 2 midnights. I reasonably expect this patient to be discharged or transferred within 96 hours [facility] Disposition - anticipate discharge to home Primary care physician - Carola Sampson nurse practitioner
[2017-04-18] MEDS ORDERED: Potassium Chloride 20 MEQ Tab.ER PO ONE (10:30)
[2017-04-18] MEDS: Ciprofloxacin in D5W 400 MG in Premix Bag 1 BAG IV SCH ×2 (14:07)
[2017-04-18] MEDS ORDERED: fentaNYL 100 MCG/2 ML SDV ONE (14:55)
[2017-04-18] MEDS ORDERED: Propofol 200 MG/20 ML SDV ONE (14:55)
[2017-04-18] MEDS ORDERED: Midazolam 1 MG/ML 2 ML SDV ONE (14:55)
[2017-04-18] MEDS ORDERED: Ibuprofen 600 MG Tab PO PRN (20:18)
[2017-04-18] MEDS ORDERED: Sodium Chloride 0.9% 1,000 ML IV SCH (20:30)
[2017-04-18] MEDS ORDERED: Rosuvastatin 10 MG Tab PO SCH (21:00)
[2017-04-18] MEDS ORDERED: Acetaminophen 325 MG Tab PO PRN (21:06)
[2017-04-19] MEDS: Ciprofloxacin in D5W 400 MG in Premix Bag 1 BAG IV SCH ×4 (01:54→13:21)
[2017-04-19] MEDS: metroNIDAZOLE/Normal Saline 500 MG in Premix Bag 1 BAG IV SCH ×2 (02:50→10:25)
[2017-04-19] MEDS: Furosemide 20 MG Tab PO SCH (08:34)
[2017-04-19] MEDS: Metoprolol Tartrate 25 MG Tab PO SCH (08:34)
[2017-04-19] MEDS: Doxazosin 4 MG Tab PO SCH (08:34)
[2017-04-19] MEDS: Pantoprazole 40 MG Vial IV SCH (08:35)
[2017-04-19] MEDS: Lisinopril 20 MG Tab PO SCH (08:35)
--- NOTE | 2017-04-19 13:55 | OR ---
DATE OF PROCEDURE: 04/18/2017 PREOPERATIVE DIAGNOSIS: Blood in stool; abdominal pain, improved; and abnormal CT scan suggestive of ischemic colitis. POSTOPERATIVE DIAGNOSIS: Colitis at the splenic flexure consistent with ischemic colitis. PROCEDURE: Colonoscopy to the splenic flexure with biopsy of splenic flexure. ANESTHESIA: IV anesthesia with monitored anesthesia care. INDICATIONS: This 51-year-old white male was admitted last night passing blood with his stool and complaining of abdominal pain. CAT scan showed a thickened bowel wall at the colonic splenic flexure area suggestive of ischemic colitis. He received a bowel prep, which he tolerated. His pain is resolved. He has had no more bleeding. I counseled him for a colonoscopy with possible biopsy and/or polypectomy including risks and alternatives, and he gave his informed consent to proceed. His last colonoscopic exam was done about two years ago. DESCRIPTION OF PROCEDURE: The patient was placed in the left lateral decubitus position. IV anesthesia was administered by the Anesthesia Service. Time-out was held. A rectal exam was performed, which was unremarkable. The flexible video Olympus colonoscope was introduced through his anus, up his rectum, and out his colon to the splenic flexure. As we entered the proximal left colon, we saw some erythema consistent with colitis, however, when we reached the splenic flexure, it became quite significant colitis. There were some very dark mucosal areas. We obtained multiple biopsies of this area. We did not proceed beyond this to avoid the risk of perforation. The scope was then withdrawn. No other lesions were noted. The scope was retroflexed in the rectum with the distal rectum appearing unremarkable. The scope was straightened and removed. He tolerated the procedure well. Jose Nazario MD /[id number] MTDD
[2017-04-19 14:33] VITALS: BP 140/97
--- NOTE | 2017-04-19 14:52 | PCM.DCSUM1 ---
Discharge Summary - Hospital Course Brief History: 51-year-old male with history of obesity with a BMI greater than 40 and difficult to control hypertension who presented with left lower quadrant abdominal pain and rectal bleeding. He is admitted for management of colitis and lower GI hemorrhage. - Discharge Data Discharge Date: 04/19/17 Discharge Disposition: Home, Self-Care 01 Condition: Good - Discharge Diagnosis/Problem(s) (1) Ischemic colitis SNOMED Code(s): 54299237 ICD Code: K55.9 - VASCULAR DISORDER OF INTESTINE, UNSPECIFIED Status: Acute (2) WALTER (obstructive sleep apnea) SNOMED Code(s): 95809088 ICD Code: G47.33 - OBSTRUCTIVE SLEEP APNEA (ADULT) (PEDIATRIC) Status: Suspected - Patient Summary/Data Consults: Consultations 04/18/17 01:35 Consult to Physician [CONS] Routine Consulting Provider: Davin Bo Call Completed to Consulting Physician: Yes: colonscopy in am Reason for Consult: rectal bleeding Person Notified: Dr. Nazario Date Notified: 04/18/17 Time Notified: 00:05 Hospital Course: Alberto presented to the emergency room with crampy left lower quadrant abdominal pain and hematochezia with clots. Workup in the emergency room was concerning for an acute lower gastrointestinal hemorrhage and he was admitted to the hospital for further workup and management. The morning after admission his hemoglobin has remained stable. He has not had additional episodes of bleeding. A colonoscopy was performed and showed some evidence for probable ischemic colitis at the splenic flexure. This was relatively mild. After initially having significant elevations of his blood pressure with both systolic and diastolic pressures being elevated his blood pressures have been well-controlled. He has tolerated a regular diet. I suspect that his ischemic colitis was related to difficult to control hypertension. Blood pressure has been very well controlled during the course of the hospital stay. We did discuss some medication adjustments but at this point his blood pressure is so well controlled but I don't believe we need to make changes. I am concerned that he has undiagnosed obstructive sleep apnea with excessive daytime somnolence, snoring and witnessed apneas. I did complete the paperwork for him to have an outpatient stress test. He will continue his usual medications for now. He does have a blood pressure cuff at home and will be monitoring his blood pressures are if he does not feel well. He will need close clinic followup to ensure that his blood pressure remains well-controlled. - Patient Instructions Diet: Regular Diet as Tolerated Activity: As Tolerated Driving: May Drive Today Showering/Bathing: May Shower Notify Provider of: Fever, Increased Pain, Nausea and/or Vomiting Other/Special Instructions: 1. You were in the hospital for management of ischemic colitis. I suspect that the poor blood flow was secondary to elevated blood pressures. Your bleeding has stopped with normalization of blood pressure. I suspect that the difficult to control blood pressure is caused by obstructive sleep apnea. I have completed paperwork for an outpatient sleep study and you will be contacted in the near future to schedule this. 2. Please followup next week to have your blood pressure checked. If your blood pressure remains out of goal range we may need to add an additional medication to help control the blood pressure. Hydrochlorothiazide may be a good choice for additional blood pressure control. 3. Please seek medical attention if you have severe abdominal pain, recurrence of your bleeding or you develop profound fatigue, shortness of breath or chest pain. - Discharge Plan Home Medications: Home Meds Gluc Rios 2KCl/Chondr/Vit C/Galen [Glucosamine-Chondr Complex] 1 tab PO DAILY PRN 03/04/15 [History] Lisinopril [Prinivil] 40 mg PO BID 03/04/15 [History] Rosuvastatin [Crestor] 20 mg PO BEDTIME 04/25/15 [History] Aspirin [Ecotrin] 81 mg PO DAILY 04/15/17 [History] Cyclobenzaprine [Flexeril] 10 mg PO TID 04/15/17 [History] Doxazosin [Cardura] 2 mg PO DAILY 04/15/17 [History] Furosemide 20 mg PO DAILY 04/15/17 [History] Hydrocodone/Acetaminophen [Hydrocodon-Acetaminophen 5-325] 1 tab PO Q4HR PRN [History] Metoprolol Tartrate 100 mg PO BID 04/18/17 [History] Patient Handouts: Sleep Apnea, [id number] Referrals: Carola Sampson NP [Primary Care Provider] - (1 week - f/u hospital stay for ischemic colitis and BP check) - Discharge Summary/Plan Comment DC Time >30 min.: No (25) - Patient Data Vitals - Most Recent: Last Vital Signs Temp 36.6 C 04/19/17 14:31 Pulse 83 04/19/17 14:31 Resp 16 04/19/17 14:31 BP 140/97 H 04/19/17 14:31 Pulse Ox 94 L 04/19/17 14:31 Weight - Most Recent: 134.4 kg I&O - Last 24 hours: Intake & Output 04/18/17 04/19/17 04/19/17 22:59 06:59 14:59 Intake Total 2945 766 960 Balance 2945 766 960 Lab Results - Last 24 hrs: Laboratory Results - last 24 hr 04/19/17 04/19/17 Range/Units 04:45 04:45 WBC 9.5 (4.5-11.0) K/uL RBC 5.29 (4.30-5.90) M/uL Hgb 14.8 (12.0-15.0) g/dL Hct 44.0 (40.0-54.0) % MCV 83 (80-98) fL MCH 28 (27-31) pg MCHC 34 (32-36) % Plt Count 154 (150-400) K/uL Neut % (Auto) 59 (36-66) % Lymph % (Auto) 25 (24-44) % [place]ides % (Auto) 13 H (2-6) % Eos % (Auto) 2 (2-4) % Baso % (Auto) 1 (0-1) % Sodium 141 (140-148) mmol/L Potassium 3.3 L (3.6-5.2) mmol/L Chloride 104 (100-108) mmol/L Carbon Dioxide 27 (21-32) mmol/L Anion Gap 13.3 (5.0-14.0) mmol/L BUN 5 L (7-18) mg/dL Creatinine 0.8 (0.8-1.3) mg/dL Est Cr Clr Drug Dosing 105.69 mL/min Estimated GFR (MDRD) > 60 (>60) Glucose 106 (74-106) mg/dL Calcium 8.0 L (8.5-10.1) mg/dL Med Orders - Current: Current Medications Acetaminophen (Tylenol) 650 mg PO Q4H PRN PRN Reason: Headache Last Admin: 04/18/17 21:42 Dose: 650 mg Albuterol (Proventil Neb Soln) 2.5 mg NEB Q4H PRN PRN Reason: Shortness Of Breath/wheezing Doxazosin Mesylate (Cardura) 2 mg PO DAILY [facility] Last Admin: 04/19/17 08:34 Dose: 2 mg Furosemide (Lasix) 20 mg PO DAILY [facility] Last Admin: 04/19/17 08:34 Dose: 20 mg Ciprofloxacin/Dextrose 400 mg/ (Premix) 200 mls @ 200 mls/hr IV Q12H [facility] Last Admin: 04/19/17 13:21 Dose: 200 mls/hr Metronidazole 500 mg/ Premix 100 mls @ 100 mls/hr IV Q8H [facility] Last Admin: 04/19/17 10:25 Dose: 100 mls/hr Lisinopril (Prinivil) 40 mg PO BID [facility] Last Admin: 04/19/17 08:35 Dose: 40 mg Lorazepam (Ativan) 1 mg IV Q6H PRN PRN Reason: Nausea/Vomiting Metoprolol Tartrate (Lopressor) 25 mg PO BID [facility] Last Admin: 04/19/17 08:34 Dose: 25 mg Naloxone HCl (Narcan) 0.4 mg IVPUSH Q2M PRN PRN Reason: Respiratory Distress Ondansetron HCl (Zofran) 4 mg IV Q4H PRN PRN Reason: Nausea/Vomiting Ondansetron HCl (Zofran) 4 mg IVPUSH Q4H PRN PRN Reason: Nausea/Vomiting Rosuvastatin Calcium (Crestor) 20 mg PO BEDTIME [facility] Last Admin: 04/18/17 20:42 Dose: 20 mg Discontinued Medications Bisacodyl (Dulcolax) 5 mg PO ONETIME ONE Stop: 04/18/17 01:36 Last Admin: 04/18/17 01:54 Dose: 5 mg Bisacodyl (Dulcolax) 10 mg PO ONETIME ONE Stop: 04/18/17 08:31 Last Admin: 04/18/17 07:54 Dose: 10 mg Fentanyl (Sublimaze) Confirm Administered Dose 100 mcg .ROUTE .STK-MED ONE Stop: 04/18/17 14:56 Hydromorphone HCl (Dilaudid) 1 mg IVPUSH ONETIME ONE Stop: 04/18/17 00:10 Last Admin: 04/18/17 00:24 Dose: 1 mg Hydromorphone HCl (Dilaudid [employer] Service [employer]ician 15 Mg In Ns 30 Ml) 0 mg IV ASDIRECTED PRN; Protocol PRN Reason: Pain Last Admin: 04/18/17 02:20 Dose: 15 mg Sodium Chloride (Normal Saline) 100 mls @ 3.5 mls/sec IV ASDIRECTED [facility] Last Admin: 04/17/17 22:35 Dose: 3.5 mls/sec Sodium Chloride (Normal Saline) 1,000 mls @ 125 mls/hr IV ASDIRECTED [facility] Last Admin: 04/18/17 09:48 Dose: 125 mls/hr Ciprofloxacin/Dextrose 400 mg/ (Premix) 200 mls @ 200 mls/hr IV Q12H [facility] Last Admin: 04/18/17 02:03 Dose: 200 mls/hr Metronidazole 500 mg/ Premix 100 mls @ 100 mls/hr IV Q8H [facility] Last Admin: 04/18/17 03:13 Dose: 100 mls/hr Ciprofloxacin/Dextrose 400 mg/ (Premix) 200 mls @ 200 mls/hr IV Q12H [facility] Potassium Chloride 20 meq/Lidocaine HCl 2 ml/ Sodium Chloride 112 mls @ 56 mls/ hr IV Q2H [facility] Stop: 04/18/17 13:59 Last Admin: 04/18/17 11:39 Dose: 56 mls/hr Sodium Chloride (Normal Saline) 1,000 mls @ 0 mls/hr IV ASDIRECTED [facility] PRN Reason: KVO Stop: 04/22/17 20:19 Last Admin: 04/18/17 19:40 Dose: 25 mls/hr Ibuprofen (Motrin) 600 mg PO Q6H PRN PRN Reason: Pain Iopamidol (Isovue-300 (61%)) 150 ml IV . DIRECTED PRN PRN Reason: RADIOLOGY EXAM Stop: 04/18/17 22:12 Last Admin: 04/17/17 22:34 Dose: 150 ml Lisinopril (Prinivil) Confirm Administered Dose 40 mg .ROUTE .STK-MED ONE Stop: 04/18/17 02:16 Last Admin: 04/18/17 02:18 Dose: Not Given Midazolam HCl (Versed 1 Mg/Ml) Confirm Administered Dose 2 mg .ROUTE .STK-MED ONE Stop: 04/18/17 14:56 Ondansetron HCl (Zofran) 4 mg IVPUSH ONETIME ONE Stop: 04/18/17 00:10 Last Admin: 04/18/17 00:21 Dose: 4 mg Pantoprazole Sodium (Protonix Iv) 80 mg IVPUSH .BOLUS [facility] Last Admin: 04/18/17 00:13 Dose: 80 mg Pantoprazole Sodium (Protonix Iv) 40 mg IV Q12H [facility] Pantoprazole Sodium (Protonix Iv) 40 mg IV Q12H [facility] Last Admin: 04/19/17 08:35 Dose: 40 mg Polyethylene Glycol (Miralax) 238 gm PO ONETIME ONE Stop: 04/18/17 01:36 Last Admin: 04/18/17 01:54 Dose: 238 gm Potassium Chloride (Klor-Con M20) 40 meq PO ONETIME ONE Stop: 04/18/17 10:31 Last Admin: 04/18/17 11:25 Dose: 40 meq Propofol (Diprivan 20 Ml) Confirm Administered Dose 200 mg .ROUTE .STK-MED ONE Stop: 04/18/17 14:56 Sodium Chloride (Saline Flush) 10 ml FLUSH ASDIRECTED PRN PRN Reason: Keep Vein Open Last Admin: 04/18/17 00:30 Dose: 10 ml Sodium Chloride (Saline Flush) 10 ml FLUSH ASDIRECTED PRN PRN Reason: Keep Vein Open Stop: 04/17/17 23:00 Last Admin: 04/17/17 22:35 Dose: 10 ml *Q Meaningful Use (DIS) - VTE *Q VTE Criteria *Q: - Stroke *Q Stroke Criteria *Q: - AMI *Q AMI Criteria *Q:
== END 2017-04-19 15:23 | disposition home or self-care (01) | DRG 394 ==
LOC: JP.ED 20:12 → JP.MS 04-18 00:23
PROVIDERS: ADMIT Hospitalist; ATTEND Internal Medicine
PROC: 0DBL8ZX Excision of Transverse Colon, Via Natural or Artificial Opening Endoscopic, Diagnostic (ICD-10-PCS; principal; 2017-04-18)
DX: K52.9 Noninfective gastroenteritis and colitis, unspecified (principal); M54.5 Low back pain; K55.9 Vascular disorder of intestine, unspecified; Z68.41 Body mass index [BMI] 40.0-44.9, adult; K62.5 Hemorrhage of anus and rectum; E66.9 Obesity, unspecified; I10 Essential (primary) hypertension; G47.33 Obstructive sleep apnea (adult) (pediatric); K21.9 Gastro-esophageal reflux disease without esophagitis; M54.9 Dorsalgia, unspecified; G89.29 Other chronic pain; Z87.891 Personal history of nicotine dependence; M47.26 Other spondylosis with radiculopathy, lumbar region
CPT/HCPCS: 36415; 74177; 80053; 81001; 85025; 86140; 96361; 96365; 96375; 99284; 99285; C9113; J2405; J7030; J7040; J7050 ×2; 80048; 84132; 88305; 94762; 96366; 99217; 99220; A9270-GY; J0744; J1170; J2250; J2704; J3010; J3480

== ENCOUNTER 2020-05-17 09:00 | Day surgery (SDC) | payer MEDICARE, BC ==
[~2020-05-17 09:00] MED LIST: Midazolam 1 MG/ML 2 ML SDV ONE; Propofol 200 MG/20 ML SDV ONE; fentaNYL 100 MCG/2 ML SDV ONE
[2020-05-17] MEDS ORDERED: ceFAZolin 2 GM in Premix Bag 1 BAG IV ONE (09:29)
[2020-05-17] MEDS ORDERED: Sodium Chloride 0.9% 1,000 ML IV SCH (09:30)
[2020-05-17] MEDS ORDERED: Propofol 200 MG/20 ML SDV ONE (09:45)
[2020-05-17 11:07] VITALS: BP 110/70; PULSE 63
--- NOTE | 2020-05-17 12:04 | OR ---
DATE OF PROCEDURE: 05/17/2020 SURGEON: Erwin Gurrola MD PROCEDURE: Colonoscopy. FINDINGS: 1. Sigmoid colon polyp, approximately 5 mm, completely removed using cold biopsy forceps. 2. No other abnormalities. COMPLICATIONS: None. [employer]: None. ANESTHESIA: MAC. PREOPERATIVE DIAGNOSIS: History of colon polyps. POSTOPERATIVE DIAGNOSIS: History of colon polyps. RISKS: Risks, benefits, alternatives, and limitations including, but not limited to infection, bleeding, and perforation were explained to the patient, who wished to proceed. PROCEDURE IN DETAIL: The patient was placed in a left lateral decubitus position. Digital rectal exam was performed without abnormality. Scope was introduced and advanced atraumatically to the ileocecal valve. Scope was brought back through the ascending, transverse, descending colon, and retroflexed. The aforementioned polyp was completely removed as described above. No abnormalities were noted. The patient tolerated the procedure well. Erwin Gurrola MD /[id number]
== END 2020-05-17 11:15 | disposition home or self-care (01) ==
LOC: JP.SDS 09:00
PROVIDERS: ATTEND Surgery
DX: Z12.11 Encounter for screening for malignant neoplasm of colon (principal); D12.5 Benign neoplasm of sigmoid colon; I10 Essential (primary) hypertension; Z86.010 Personal history of colon polyps; Z98.890 Other specified postprocedural states
CPT/HCPCS: 45380; 88305; J0690; J2250; J2704; J3010; J7030

== ENCOUNTER 2025-06-19 18:14 | Emergency (ER) | payer MEDICARE, BC ==
[2025-06-19] MEDS: Ketorolac 30 MG/ML SDV IVPUSH ONE (19:27)
[2025-06-19] MEDS: Sodium Chloride 0.9% 10 ML Syringe FLUSH PRN (19:28)
[2025-06-19 22:42] VITALS: BP 112/67; PULSE 59
== END 2025-06-20 00:05 | disposition home or self-care (01) ==
LOC: JP.ED 18:14
DX: M54.50 Low back pain, unspecified (principal); E78.00 Pure hypercholesterolemia, unspecified; I10 Essential (primary) hypertension; K21.9 Gastro-esophageal reflux disease without esophagitis; Z88.1 Allergy status to other antibiotic agents; Z88.2 Allergy status to sulfonamides; Z88.8 Allergy status to other drugs, medicaments and biological substances; Z79.899 Other long term (current) drug therapy
CPT/HCPCS: 72131; 76377; 96374; 96375; 96376; 99284; J1171; J1885; J3360